=== PATIENT | male | born 1985 | race American Indian/Alaskan Native ===

== ENCOUNTER 2017-01-16 14:12 | Emergency (ER) | payer SELFPAY ==
[2017-01-16 14:23] VITALS: BP 147/97
--- NOTE | 2017-01-16 14:57 | EDM.PDOC ---
ED HPI GENERAL MEDICAL PROBLEM - General Chief Complaint: ENT Problem Stated Complaint: LUNG, LEFT SIDE Time Seen by Provider: 01/16/17 14:46 Source of Information: Reports: Patient, Old Records, RN, RN Notes Reviewed History Limitations: Reports: No Limitations - History of Present Illness INITIAL COMMENTS - FREE TEXT/NARRATIVE: Arrives from home by POV with complaint that he woke this morning with nasal congestion, and a cough. After coughing hard he developed a sharp left sided chest wall pain. Since the pain developed it hurts to cough and to breathe. Denies fever or chills, wheezing, or shortness of breath. Onset: Today Duration: Constant Location: Reports: Head, Chest Quality: Reports: Ache, Sharp Severity: Moderate Worsens with: Reports: Breathing, Movement Associated Symptoms: Reports: No Other Symptoms Left Chest Pain Score (Numeric/FACES): 5 - Related Data Allergies Allergy/AdvReac Type Severity Reaction Status Date / Time No Known Allergies Allergy Verified 01/16/17 14:19 Home Meds: Home Meds . [No Known Home Meds] 01/16/17 [History] Past Medical History - Past Health History Medical/Surgical History: Denies Medical/Surgical History HEENT History: Reports: Impaired Vision Social & Family History - Family History Family Medical History: Noncontributory - Tobacco Use Smoking Status *Q: Current Every Day Smoker Years of Tobacco use: 7 Packs/Tins Daily: 0.5 - Caffeine Use Caffeine Use: Reports: Coffee, Soda - Recreational Drug Use Recreational Drug Use: No - Living Situation & Occupation Living situation: Reports: with Family ED ROS ENT - Review of Systems Review Of Systems: ROS reveals no pertinent complaints other than HPI. ED EXAM, ENT - Physical Exam Exam: See Below Exam Limited By: No Limitations General Appearance: Alert, WD/WN, No Apparent Distress Ears: Normal External Exam, Normal Canal, Hearing Grossly Normal, Normal TMs Nose: Other (moderate nasal congestion. No facial tenderness.) Mouth/Throat: Normal Gums, Normal Lips, Normal Teeth, Pharyngeal Erythema (mild , with white postnasal drip) Head: Atraumatic, Normocephalic Neck: Full Range of Motion, Lymphadenopathy (R) (mildly tender Rt upper cervical LAD). No: Lymphadenopathy (L) Respiratory/Chest: No Respiratory Distress, Lungs Clear, Normal Breath Sounds, No Accessory Muscle Use, Chest Non-Tender, Other (occ. dry cough) Cardiovascular: Normal Peripheral Pulses, Regular Rate, Rhythm, No Edema, No Gallop, No JVD, No Murmur, No Rub GI/Abdominal: Normal Bowel Sounds, Soft, Non-Tender, No Distention Back: Normal Inspection, Full Range of Motion. No: CVA Tenderness (L), CVA Tenderness (R) Extremities: Normal Inspection, Normal Range of Motion, Non-Tender, No Pedal Edema, Normal Capillary Refill Neurological: Alert, Oriented, CN II-XII Intact, Normal Cognition, Normal Gait, No Motor/Sensory Deficits Psychiatric: Anxious Skin: Warm, Dry, Intact, Normal Color, No Rash EKG INTERPRETATION EKG Date: 01/16/17 Time: 14:28 Rhythm: NSR Broadbent: Normal P-Wave: Present QRS: Normal ST-T: Normal QT: Normal Comparison: NA - No Prior EKG EKG Interpretation Comments: No acute ischemic changes. Course - Vital Signs Last Recorded V/S: Last Vital Signs Temp 37.2 C 01/16/17 14:19 Pulse 88 01/16/17 14:19 Resp 16 01/16/17 14:19 BP 147/97 H 01/16/17 14:19 Pulse Ox 98 01/16/17 14:19 - Orders/Labs/Meds Orders: Active Orders 24 hr Category Date Time Status EKG Documentation Completion [RC] STAT Care 01/16/17 14:30 Active Chest 2V [CR] Urgent Exams 01/16/17 14:37 Taken Meds: Medications Discontinued Medications Generic Name Dose Route Start Last Admin Trade Name Freq PRN Reason Stop Dose Admin Benzonatate 200 mg 01/16/17 15:45 Tessalon Perles PO 01/16/17 15:46 ONETIME ONE Prednisone 60 mg 01/16/17 15:45 Prednisone PO 01/16/17 15:46 ONETIME ONE - Radiology Interpretation Free Text/Narrative:: CXR: no acute infiltrates or process per Rad. report. Departure - Departure Time of Disposition: 15:55 Disposition: Home, Self-Care 01 Condition: Good Clinical Impression: Upper respiratory infection with cough and congestion, Pleurisy without effusion - Discharge Information Instructions: Pleurisy, [id number], Upper Respiratory Infection, Adult, Easy- to-Read Forms: ED Department Discharge Additional Instructions: Takes several deep breaths every hour while awake. Follow up in clinic if not improving in 3 days. Return to ER if worse at any time. - My Orders Last 24 Hours: My Active Orders 01/16/17 14:30 EKG Documentation Completion [RC] STAT - Assessment/Plan Last 24 Hours: My Active Orders 01/16/17 14:30 EKG Documentation Completion [RC] STAT
[2017-01-16] MEDS ORDERED: predniSONE 20 MG Tab PO ONE (15:45)
[2017-01-16] MEDS ORDERED: Benzonatate 100 MG Cap PO ONE (15:45)
--- NOTE | 2017-01-18 16:39 | EKG ---
01/16/2017 - ELIEZER PAUL - This 12-lead EKG shows normal sinus rhythm with heart rate of 82. No significant ST elevation or ST depression noted on this 12-lead EKG. Nonspecific ST-T wave changes noted on lead V2, V3. [facility] /[id number]
== END 2017-01-16 16:08 | disposition home or self-care (01) ==
LOC: DL.ED 14:12
DX: R09.1 Pleurisy (principal); J06.9 Acute upper respiratory infection, unspecified; F17.210 Nicotine dependence, cigarettes, uncomplicated
CPT/HCPCS: 71020; 93005; 93010; 99283; A9270

== ENCOUNTER 2020-11-30 12:16 | Emergency (ER) | payer MEDICAID ==
[2020-11-30 13:53] VITALS: BP 144/92; PULSE 69
[2020-11-30] MEDS ORDERED: Orphenadrine 60 MG/2 ML Inj IM ONE (13:56)
[2020-11-30] MEDS ORDERED: Ketorolac 30 MG/ML SDV IM ONE (13:56)
--- NOTE | 2020-11-30 13:57 | EDM.PDOC ---
ED HPI GENERAL MEDICAL PROBLEM - General Chief Complaint: Back Pain or Injury Stated Complaint: BACK PAIN / HARD TO BREATH Time Seen by Provider: 11/30/20 13:56 Source of Information: Reports: Patient, Family (), Old Records, RN, RN Notes Reviewed History Limitations: Reports: No Limitations - History of Present Illness INITIAL COMMENTS - FREE TEXT/NARRATIVE: Holland is a 35 y/o male with a history of multiple spine surgeries who presents to the ED via personal vehicle with for complaints of mid-back pain. The patient reports he was walking past his in their hallway when he twisted his back and felt pain in the mid-thoracic region. He notes the pain wraps around bilaterally to his anterior chest. He feels he is unable to take a deep breath due to his pain. He denies recent injury or falls. He denies incontinence of bowel/bladder, inability to void, or saddle paraesthesia. He denies inability to ambulate. The patient has taken no medication or performed any supportive care measures for his pain. back Pain Score (Numeric/FACES): 9 - Related Data Allergies Allergy/AdvReac Type Severity Reaction Status Date / Time No Known Allergies Allergy Verified 11/30/20 13:53 Home Meds: Home Meds . [No Known Home Meds] 01/16/17 [History] Past Medical History - Past Health History Medical/Surgical History: Denies Medical/Surgical History HEENT History: Reports: Impaired Vision Social & Family History - Family History Family Medical History: No Pertinent Family History - Caffeine Use Caffeine Use: Reports: Coffee, Soda - Living Situation & Occupation Living situation: Reports: with Family ED ROS GENERAL - Review of Systems Review Of Systems: Comprehensive ROS is negative, except as noted in HPI. ED EXAM,LOWER BACK PAIN/INJURY - Physical Exam Exam: See Below Exam Limited By: No Limitations General Appearance: Alert, No Apparent Distress Eye Exam: Bilateral Eye: EOMI, Normal Inspection, PERRL (3mm) Ears: Normal External Exam, Hearing Grossly Normal Nose: Normal Inspection, Normal Mucosa, No Blood Throat/Mouth: Normal Inspection, Normal Oropharynx, Normal Voice, No Airway Compromise Head: Atraumatic, Normocephalic Neck: Normal Inspection, Supple, Non-Tender, Full Range of Motion Respiratory/Chest: No Respiratory Distress, Lungs Clear, Normal Breath Sounds, No Accessory Muscle Use, Chest Non-Tender Cardiovascular: Normal Peripheral Pulses, Regular Rate, Rhythm, No Edema, No Gallop, No JVD, No Murmur, No Rub GI/Abdominal: Normal Bowel Sounds, Soft, Non-Tender (Male) Exam: Deferred Rectal (Males) Exam: Deferred Back Exam: Decreased Range of Motion, Muscle Spasm. No: CVA Tenderness (L), CVA Tenderness (R), Paraspinal Tenderness, Vertebral Tenderness Extremities: Normal Inspection, Normal Range of Motion, No Pedal Edema, Normal Capillary Refill. No: Joint Swelling, Leg Pain, Increased Warmth Neurological: Alert, Normal Mood/Affect, Normal Dorsiflexion, CN II-XII Intact, Normal Plantar Flexion, Normal Gait, No Motor/Sensory Deficits, Oriented x 3, Straight Leg Raise (L), Straight Leg Raise (R). No: Babinski, Tremor, Saddle Anesthesia, Difficulty Walking Psychiatric: Normal Affect, Normal Mood Skin Exam: Warm, Dry, Intact, Normal Color, No Rash. No: Cyanosis, Jaundice, Mottled, Pallor Lymphatic: No Adenopathy Course - Vital Signs Last Recorded V/S: Last Vital Signs Temp 97.4 F 11/30/20 13:47 Pulse 69 11/30/20 13:47 Resp 20 11/30/20 13:47 BP 144/92 H 11/30/20 13:47 Pulse Ox 98 11/30/20 13:47 - Orders/Labs/Meds Meds: Medications Discontinued Medications Generic Name Dose Route Start Last Admin Trade Name Freq PRN Reason Stop Dose Admin Ketorolac Tromethamine 60 mg 11/30/20 13:56 11/30/20 14:04 Ketorolac 30 Mg/Ml Sdv IM 11/30/20 13:57 60 mg ONETIME ONE Administration Orphenadrine Citrate 60 mg 11/30/20 13:56 11/30/20 14:07 Orphenadrine 60 Mg/2 Ml Inj IM 11/30/20 13:57 60 mg ONETIME ONE Administration - Re-Assessments/Exams Free Text/Narrative Re-Assessment/Exam: 11/30/20 Toradol 60mg IM and Norflex 60mg IM administered. Xray of lumbar and thoracic spine obtained. Patient verbalized improvement in pain following medication administration. Findings of examination and imaging reviewed with patient. Will treat muscle spasm with orphenadrine. Discussed supportive cares for muscle spasm. Patient instructed to follow up with primary care provider. Red flag signs and symptoms which would warrant reevaluation reviewed. Patient verbalized understanding and agreement with the plan of care. Departure - Departure Time of Disposition: 15:22 Disposition: Home, Self-Care 01 Condition: Fair Clinical Impression: Mid back pain, Muscle spasm - Discharge Information *PRESCRIPTION DRUG MONITORING PROGRAM REVIEWED*: Not Applicable *COPY OF PRESCRIPTION DRUG MONITORING REPORT IN PATIENT BRIAN: Not Applicable Instructions: Muscle Cramps and Spasms, Acute Back Pain, Adult Forms: ED Department Discharge Additional Instructions: Rx: Norflex 1.) You may take ibuprofen (Advil/Motrin) 400-800mg every six hours, as pain and swelling persists. You may also take acetaminophen (Tylenol) 650-1000mg every six hours, as pain persists. You may stagger these medications so you are receiving a dose every three hours. 2.) Follow up with your primary care provider in 5-7 days regarding today's visit, sooner should symptoms persist despite medications. 3.) You may apply ice compresses to the back, as pain persists. 4.) You may apply Bengay, Biofreeze to the back, as pain persists. Sepsis Event Note (ED) - Evaluation Sepsis Screening Result: No Definite Risk
--- NOTE | 2020-11-30 15:06 | CR ---
EXAMINATION: Lumbar Spine 2 V SEX: Male AGE: 35 years CLINICAL HISTORY: 35-year-old obese male with mid back pain and "history multiple spinal surgeries". Abnormal MRI exam 07 February 2019 ("chronic multilevel lower lumbar disc degeneration with asymmetric herniation L5-S1 on the left; and, lower lumbar spinal canal stenosis at the L4-5 level"). Interpretation: 1. Generally good bone mineralization consistent with age and gender. 2. Relative narrowing of the L4-5 and lowest L5-S1 interspaces. 3. No sign of pathologic skeletal lesion, lumbar fracture or spondylolisthesis (minimal spondylosis). 4. Symmetric spacing normal-appearing SI and hip joints. No arthritic degenerative changes.
--- NOTE | 2020-11-30 15:09 | CR ---
EXAMINATION: Thoracic Spine 2V SEX: Male AGE: 35 years CLINICAL HISTORY: 35-year-old obese male with mid back pain and "multiple spinal surgeries". Interpretation: 1. Normal bone mineral density and normal height/alignment of the thoracic vertebral bodies. 2. No sign of congenital abnormality, pathologic skeletal lesion, thoracic fracture or spondylolisthesis. 3. No abnormal intervertebral disc space narrowing or reactive arthritic changes of the dorsal spine. 4. Posterior ribs unremarkable. 5. Normal mediastinal width. Normal cardiac silhouette. Midline and unremarkable. CONCLUSION: Negative plain film exam thoracic spine.
== END 2020-11-30 15:38 | disposition home or self-care (01) ==
LOC: DL.ED 12:16
DX: M62.830 Muscle spasm of back (principal); X50.1XXA Overexertion from prolonged static or awkward postures, initial encounter
CPT/HCPCS: 72070; 72100; 96372; 99283; J1885; J2360

== ENCOUNTER 2022-07-18 19:51 | Emergency (ER) | payer MEDICAID ==
[2022-07-18 20:13] VITALS: BP 156/103; PULSE 121
[2022-07-18] MEDS ORDERED: Orphenadrine 60 MG/2 ML Inj IM ONE (20:55)
[2022-07-18] MEDS ORDERED: Ketorolac 30 MG/ML SDV IM ONE (20:55)
== END 2022-07-18 21:49 | disposition home or self-care (01) ==
LOC: DL.ED 19:51
DX: M54.50 Low back pain, unspecified (principal); G89.29 Other chronic pain; M53.86 Other specified dorsopathies, lumbar region; X50.1XXA Overexertion from prolonged static or awkward postures, initial encounter
CPT/HCPCS: 72020; 72220; 96372; 99284; J1885; J2360